=== PATIENT | female | born 1965 | race Caucasian/White ===

== ENCOUNTER 2017-03-01 11:50 | Emergency (ER) | payer OTHER ==
[~2017-03-01] VITALS: Ht 162.6 cm; Wt 99.2 kg
[~2017-03-01 11:50] MED LIST: AEROECLIPSE1 EACH MC; ALLEGRA ALLERGY60 MG PO; ESTRACE0.5 MG PO; FLONASE16 G1 IH; HYCODAN SYRUP480 ML PO; PREDNISONE20 MG PO; PROVENTIL,2.5 MG/3 M IH; PYRIDIUM100 MG PO; VENTOLIN HFA18 GM IH; [UNRECOGNIZED DRUG - REMARK] PO
[2017-03-01 14:25] VITALS: BP 127/80
== END 2017-03-01 14:25 | disposition home or self-care (01) ==
LOC: EME 11:50
PROC: 0H9BXZZ Drainage of Right Upper Arm Skin, External Approach (ICD-10-PCS; principal; 2017-03-01)
DX: L02.413 Cutaneous abscess of right upper limb (principal); Z88.0 Allergy status to penicillin
CPT/HCPCS: 99281; 99284